=== PATIENT | female | born 1945 | race Caucasian/White ===

== ENCOUNTER 2017-04-22 07:48 | Emergency (ER) | payer MEDICARE, OTHER ==
--- NOTE | ~2017-04-22 | ER ---
PATIENT'S NAME: [facility] AGE: 71 Y [address] ROOM: [place] [id number] LOCATION: [facility] ADMIT DATE: 04/22/2017 ER/Outpatient Report DISCHARGE DATE: 04/22/2017 FAMILY PHYSICIAN: Ary Smith MD ATTENDING PHYSICIAN: Bossman Carrillo Admission date and time documented in medical record. I saw the patient at 0815 hours. CHIEF COMPLAINT: Fall. HISTORY OF PRESENT ILLNESS: The patient is a 71-year-old female, who tripped outside on the pavement, fell flat on her face, hitting her face on the pavement. She has a small 1.5 cm laceration across the tip of her nose. Her nose is swollen. There is no active bleeding at this time. She has a swollen upper lip. Her teeth hurt, but she felt that they were not lose. She did not lose a tooth. Her head hurts a little bit, her neck is a little stiff. No loss of consciousness. No visual or auditory disturbance, lateralizing weakness, numbness, tingling, or loss of function. No eye, ears, or throat pain. Neck stiffness, but no pain. No spine pain. No chest pain, shortness of breath. No abdominal pain. No nausea, vomiting, or diarrhea. No urinary frequency, urgency, or dysuria. No incontinence of urine or stool. Scraped up her right knee and her left elbow; otherwise no joint muscle swelling, redness, or pain. No history of neuro changes. She does have some anxiety problems, does have hypothyroidism. HOME MEDICATIONS: See attached medication list. ALLERGIES: NONE. SOCIAL HISTORY: Nonsmoker, nondrinker. SIGNIFICANT PAST MEDICAL HISTORY: Hypertension, hypothyroidism, anxiety, and dyslipidemia. OPERATIONS: None. REVIEW OF SYSTEMS: All systems reviewed by me are negative with the exception of those discussed in the history of present illness. PATIENT'S NAME: ZACH LOMBARDO [facility] AGE: 71 Y [address] ROOM: [place] [address] LOCATION: [facility] ADMIT DATE: 04/22/2017 ER/Outpatient Report DISCHARGE DATE: 04/22/2017 FAMILY PHYSICIAN: Ary Smith MD ATTENDING PHYSICIAN: Bossman Carrillo PHYSICAL EXAMINATION: VITAL SIGNS: Temperature 97.2 tympanic, pulse 70, respirations 16, blood pressure 137/76, O2 saturation on room air is 98%. Leigh Coma Scale was 15. HEAD: Normocephalic. No abrasion, contusion, laceration, swelling of the scalp. The patient has abrasion and a small 1.5 cm laceration at the tip of her nose. There is some swelling, but there is no deformity as far as the angulation of the bridge of her nose. Upper lip is swollen. Small skin tear in the inner aspect of the mid upper lip. Teeth are intact. Throat is clear. Mucous membranes moist. Jaw is intact. NECK: Range of motion full. No tenderness. No thyromegaly or cervical adenopathy. SPINE: Nontender. No deformity. LUNGS: Clear. No rales, rhonchi, or wheezes. HEART: Regular. Pulses are palpable. ABDOMEN: Soft nontender, nondistended. Good bowel tones. No organomegaly or abnormal mass palpable. No CVA tenderness. EXTREMITIES: Moves all 4 extremities. No peripheral edema, cyanosis, or deformity. She has a small scuff scrape over the anterior surface of the right knee and in the left elbow. NEURO: Cranial nerves intact. No lateralized sign. The patient is awake, cooperative. Motor and sensory intact. SKIN: Clear other than some mild abrasions in the nasal injury. LABORATORY DATA AND X-RAYS: CT scan of the head showed no intracranial bleed, midline shift, mass effect, or skull fracture. CT scan of the facial bone showed no acute fractures or abnormalities. CT scan of the cervical spine showed some degenerative changes, no acute fracture. All scans were read by Radiology, see dictated transcribed report. PROCEDURE: I did use wound adhesive to seal the laceration on the tip of her nose. IMPRESSION: 1. Accidental fall, tripping, and falling on her face plan on cement, suffered a bruised nose and 1.5 cm laceration on the tip of the nose that was repaired with wound adhesive. She does have upper lip contusion with swelling. There is a small inner mid upper lip skin tear. No evidence of teeth or jaw injury. CT scan of the head, face, and neck were normal without fracture abnormalities other than some mild degenerative changes. 2. Hypothyroidism. 3. Hypertension. 4. Dyslipidemia. 5. History of anxiety. PATIENT'S NAME: ZACH LOMBARDO [facility] AGE: 71 Y [address] ROOM: [place] [address] LOCATION: [facility] ADMIT DATE: 04/22/2017 ER/Outpatient Report DISCHARGE DATE: 04/22/2017 FAMILY PHYSICIAN: Ary Smith MD ATTENDING PHYSICIAN: Bossman Carrillo PLAN: The patient dismissed home. Observation. Activity as tolerated. Continue present home medications and care. Ice cold packs to sore areas intermittently as needed for 72 hours. Keep abrasions and wounds clean. Follow wound adhesive, wound care instructions. Follow up with personal physician as needed. Discussion ensued with the patient concerning my findings and recommendations, she understands. MD HEATHER RAMIREZ/modl /[id number] d: 04/22/17 1527 t: 04/23/17 0613, OUTPATIENT REPORT
== END 2017-04-22 09:15 | disposition disaster alternative care site (69) ==
LOC: GACC 07:48
PROC: 09QKXZZ Repair Nasal Mucosa and Soft Tissue, External Approach (ICD-10-PCS; principal; 2017-04-22)
DX: S01.21XA Laceration without foreign body of nose, initial encounter (principal); S01.511A Laceration without foreign body of lip, initial encounter; E03.9 Hypothyroidism, unspecified; E78.00 Pure hypercholesterolemia, unspecified; I10 Essential (primary) hypertension; F41.9 Anxiety disorder, unspecified; Z79.899 Other long term (current) drug therapy; W01.198A Fall on same level from slipping, tripping and stumbling with subsequent striking against other object, initial encounter